=== PATIENT | female | born 1945 | race Caucasian/White ===

== ENCOUNTER 2021-08-02 00:09 | Day surgery (SDC) | payer MEDICARE, SELFPAY ==
[2021-07-18 15:26] VITALS: BMI 30.4
[2021-08-02 06:08] VITALS: BP 168/81; PULSE 94; RESP 20; TEMP 36.5; O2SAT 100; BMI 29.7
[2021-08-02] MEDS: AMPICILLIN 2 GM/NS 100 ML 2 GM/100 ML BAG IVPB (06:25)
[2021-08-02] MEDS: LACTATED RINGERS 1,000 ML 150 ML IV CONT (06:27)
--- NOTE | 2021-08-02 07:23 | P.PNAN_ITS ---
Anes - Initial Pre Proc Eval Procedure: Operation Date: 08/02/21 07:30 Proposed Procedures p Screening Colonoscopy - Gunnar Tomas MD Date/Time: 08/02/21 07:23 Surgeon: Gunnar Tomas MD Pre Op Diagnosis: hx of colon polyps Patient Data Age: 76 Gender: F Height: 1.6 m Weight: 76 kg Last Vital Signs Temp 97.7 F 08/02/21 06:08 Pulse 94 08/02/21 06:08 Resp 20 08/02/21 06:08 BP 168/81 H 08/02/21 06:08 Pulse Ox 100 08/02/21 06:08 Allergies Allergy/AdvReac Type Severity Reaction Status Date / Time NKA Allergy Unknown Uncoded 08/02/21 06:30 Home Medications Medication Instructions Recorded Confirmed Type valacyclovir 500 mg tablet 500 mg PO DAILY 03/24/19 04/29/21 History triamcinolone acetonide 0.5 % 1 applic TOPICAL DAILY PRN 11/16/19 04/29/21 History topical cream levocetirizine 5 mg tablet 5 mg PO DAILY PRN #30 tablet 09/18/20 07/18/21 Rx omeprazole 20 mg capsule,delayed 20 mg PO DAILY #90 cap 12/17/20 07/18/21 Rx release meloxicam 15 mg tablet 15 mg PO DAILY PRN #90 tablet 01/15/21 07/18/21 Rx montelukast 10 mg tablet 10 mg PO DAILY #90 tablet 01/15/21 07/18/21 Rx raloxifene 60 mg tablet 60 mg PO DAILY #90 tablet 01/15/21 07/18/21 Rx fluticasone propionate 50 1 spray NASAL BID #47.4 ml 04/19/21 07/18/21 Rx mcg/actuation nasal spray,suspension irbesartan 300 mg tablet 300 mg PO DAILY #90 tablet 07/23/21 Rx levothyroxine 75 mcg tablet 75 mcg PO DAILY #30 tablet 07/29/21 Rx Patient hx anesthesia problems: none Family hx anesthesia problems: none Results Review: All pre-operative results and documents have been reviewed as part of the pre-operative evaluation. [facility] Past Medical History Medical History (Updated 04/27/21 @ 09:19 by Ankit Martinez MD) Acute non-recurrent maxillary sinusitis Chronic pain of right knee Family History Family History (Updated 08/18/18 @ 12:51 by DOCTOR UNKNOWN) Mother Family history of cardiovascular disease, Onset Age: 91 Grandparent Family history of cardiovascular disease, Onset Age: 85 Father Family history of malignant neoplasm, Onset Age: 66 Social History Social History Smoking status: Never smoker Alcohol intake: never Substance use: never Substance use type: does not use Living arrangements: with family Gender identity (if verbalized by the patient): Female Spiritual care concerns: No Anes - Eval Final PreProcedure Day of Procedure 08/02/21 07:23 Patient weight: overweight Heart: regular rate and rhythm Lungs: clear to auscultation Airway: Mallampati scale class II Neurological: alert and oriented Last oral intake: >/= 8 hours ASA classification: II Emergent: no Anesthetic plan: proceed Anesthesia type and monitoring: general GIVS and standard monitoring Results Review: All pre-operative results and documents have been reviewed as part of the pre-operative evaluation. Informed Consent: The patient's anesthetic plan and its attendant risks and benefits were discussed with the patient/family/POA. Questions were solicited and answers provided to the satisfaction of the patient/family/POA.
--- NOTE | 2021-08-02 07:30 | WPDGICN ---
Assessment and Plan Assessment and plan (1) History of colon polyps: Code(s): Z86.010 - Personal history of colonic polyps Status: Acute Assessment and Plan: Patient has prior history of colon polyps by colonoscopy. Most recently 2015. Plan for surveillance colonoscopy at this time and consider this at intervals in the future. GI Consult Note Consult date/time: 08/02/21 07:30 HPI: Miya Miramontes is a 76 year old female Presents for screening colonoscopy. Patient's current weight appetite and bowel movements are normal. She denies abdominal pain. She has had no bleeding. Patient does have a prior history of adenomatous colon polyp removed from the colon in 2016. Patient's current weight appetite bowel movements are normal. Her family history is noncontributory. Apparently a cousin had colon cancer. Review of Systems Review of Systems: All systems reviewed & are unremarkable except as noted in HPI and below PMFSH Past Medical History Medical History (Updated 08/02/21 @ 07:31 by Gunnar Tomas MD) Acute non-recurrent maxillary sinusitis Chronic pain of right knee Family History Family History (Updated 08/18/18 @ 12:51 by DOCTOR UNKNOWN) Mother Family history of cardiovascular disease, Onset Age: 91 Grandparent Family history of cardiovascular disease, Onset Age: 85 Father Family history of malignant neoplasm, Onset Age: 66 Social History Social History Smoking status: Never smoker Alcohol intake: never Substance use: never Substance use type: does not use Living arrangements: with family Gender identity (if verbalized by the patient): Female Spiritual care concerns: No Meds Home Medications and Allergies Home Medications Medication Instructions Recorded Confirmed Type valacyclovir 500 mg tablet 500 mg PO DAILY 03/24/19 04/29/21 History triamcinolone acetonide 0.5 % 1 applic TOPICAL DAILY PRN 11/16/19 04/29/21 History topical cream levocetirizine 5 mg tablet 5 mg PO DAILY PRN #30 tablet 09/18/20 07/18/21 Rx omeprazole 20 mg capsule,delayed 20 mg PO DAILY #90 cap 12/17/20 07/18/21 Rx release meloxicam 15 mg tablet 15 mg PO DAILY PRN #90 tablet 01/15/21 07/18/21 Rx montelukast 10 mg tablet 10 mg PO DAILY #90 tablet 01/15/21 07/18/21 Rx raloxifene 60 mg tablet 60 mg PO DAILY #90 tablet 01/15/21 07/18/21 Rx fluticasone propionate 50 1 spray NASAL BID #47.4 ml 04/19/21 07/18/21 Rx mcg/actuation nasal spray,suspension irbesartan 300 mg tablet 300 mg PO DAILY #90 tablet 07/23/21 Rx levothyroxine 75 mcg tablet 75 mcg PO DAILY #30 tablet 07/29/21 Rx Allergies Allergy/AdvReac Type Severity Reaction Status Date / Time NKA Allergy Unknown Uncoded 08/02/21 06:30 Vital Signs Vital Signs - 24 hr 08/02/21 06:08 Temperature 97.7 F Pulse Rate 94 Respiratory Rate 20 Blood Pressure 168/81 H Pulse Oximetry 100 Exam Narrative: Physical exam reveals patient to be alert. Vital signs stable. HEENT exam is unremarkable. Patient is anicteric. Lungs are clear to auscultation and percussion. Heart is without murmur or extra sounds. Abdominal exam bowel sounds are present soft nontender with no organomegaly. Digital external rectal exam is normal.
[2021-08-02] MEDS: SIMETHICONE ORAL SUSPENSION 20 MG/0.3 ML 30 ML BOTTLE 0.6 ML IRRIGATION (07:51)
[2021-08-02 08:05] VITALS: BP 121/71; PULSE 94; RESP 19; O2SAT 99
[2021-08-02 08:15] VITALS: BP 133/85; PULSE 88; RESP 21; O2SAT 99
[2021-08-02 08:25] VITALS: BP 149/90; PULSE 104; RESP 19; O2SAT 100
== END 2021-08-02 08:27 | disposition home or self-care (01) ==
PROVIDERS: PCP Family Medicine; Visit Provider Internal Medicine Gastroenterology
PROC: 0DJD8ZZ Inspection of Lower Intestinal Tract, Via Natural or Artificial Opening Endoscopic (ICD-10-PCS; CPT 45378; principal; 2021-08-02 07:30)
DX: Z12.11 Encounter for screening for malignant neoplasm of colon (principal); Z86.010 Personal history of colon polyps
CPT/HCPCS: G0105; J0290; J2001; J2704; J7120

== ENCOUNTER → 2022-10-01 11:13 | Outpatient (CLI) | payer MEDICARE, SELFPAY ==
--- NOTE | ~2022-10-01 | MM_ITS ---
EXAMINATION: MM diagnostic shital BI w hiram HISTORY: Fibrocystic breasts and mastopathy TECHNIQUE: Craniocaudal, mediolateral, and mediolateral oblique 3-D tomosynthesis images of the breas ts were performed and synthetic 2-D images were generated. CAD analysis was submitted and interpreted . COMPARISON: 04/26/2021, 03/09/2019, 03/08/2019 BREAST PARENCHYMAL COMPOSITION: The breasts are heterogeneously dense, which may obscure small masses . FINDINGS: . Right breast: There is stable architectural distortion in the anterior third of the upper outer quadr ant of the right breast. Also seen is a stable mass in the middle third of the upper breast. No suspi cious calcification is identified. Left breast: There is stable architectural distortion in the upper inner quadrant of the left breast. No suspicious mass or calcification are identified. IMPRESSION: 1. Stable bilateral excisional biopsy changes and right breast mass without mammographic evidence of malignancy. 2. Recommend routine screening mammography in one year. BI-RADS Category 2: Benign finding(s). Reviewed, dictated and finalized at location A. IMPRESSION: 1. Stable bilateral excisional biopsy changes and right breast mass without shital mographic evidence of malignancy. 2. Recommend routine screening mammography in one year. BI-RADS Category 2: Benign finding(s).
== END ==
PROVIDERS: PCP Family Medicine; Visit Provider Family Medicine
DX: N60.11 Diffuse cystic mastopathy of right breast (principal); N60.12 Diffuse cystic mastopathy of left breast
CPT/HCPCS: 77062; 77066; G0279

== ENCOUNTER 2023-05-10 10:16 | Emergency (ER) | payer MEDICARE, SELFPAY ==
[2023-05-10 10:43] VITALS: BP 135/69; PULSE 111; RESP 16; TEMP 36.8; O2SAT 97
--- NOTE | 2023-05-10 10:49 | ED.NAVMDI ---
HPI - Nausea/Vomiting/Diarrhea General Chief complaint: Nausea/Vomiting/Diarrhea Stated complaint: diarrhea,throwing up Time Seen by Provider: 05/10/23 10:50 Source: patient Mode of arrival: ambulatory Limitations: no limitations History of Present Illness HPI Narrative: Miya is a 78-year-old female patient presenting to the clinic today with complaints of diarrhea and vomiting. She reports symptoms started at 3:00 a.m. this morning. Has had couple diarrhea episodes and 1 episode of vomiting. Does not complain of any abdominal pain, fever, chills, body aches, or urinary symptoms at this time. Related Data Allergies Allergy/AdvReac Type Severity Reaction Status Date / Time No Known Allergies Allergy Verified 05/10/23 10:54 [facility] Past Medical History Medical History Abnormal levels of other serum enzymes Acute non-recurrent maxillary sinusitis At moderate risk for fall (~2021) the patient fell 1 time when she was walking in an un even field in [place]. Cataracts, both eyes Chronic left-sided low back pain without sciatica Chronic pain of right knee Herpes zoster (~10/24/21) left upper back History of colon polyps Neoplasm of skin (~05/2021) nonhealing lesion right forearm Obesity (BMI 30.0-34.9) Family History Family History Mother Family history of cardiovascular disease, Onset Age: 91 Grandparent Family history of cardiovascular disease, Onset Age: 85 Father Family history of malignant neoplasm, Onset Age: 66 Social History Social History Smoking status: Never smoker Alcohol intake: never Substance use: never Substance use type: does not use Lack of Transportation: No Lack of Food: Never True Current Housing: I Have Housing Concerned About Future Housing: No Difficulty Paying Gas/Electric Bills: No Difficulty Paying for Meds: No Currently Unemployed: No Education: High School Diploma/GED Difficulty w/ Childcare or Family Care: No Living arrangements: with family Gender identity (if verbalized by the patient): Female Spiritual care concerns: No Comments At the time of my signature, I reviewed and agree with the nursing past medical, surgical, social, and family history. There is no relevant family history pertinent to the patient complaint. Exam Narrative: General: Well-developed, well nourished, in no apparent distress. Head: Normocephalic, atraumatic. Cardio: Regular rate and rhythm, s1 and s2 normal, no murmur appreciated. Resp: Clear to auscultation bilaterally, no rhonchi, rales, wheezing or rubs. Abdomen: Soft, pliable, bowel sounds present in all quadrants, non-tender to palpation, no organomegly, no CVAT tenderness. Course Course Emergency Course: Portions of this record may have been created with voice recognition software. Level of Care: Express Care Visit Vital Signs Vital signs: Vital Signs Temperature 36.8 C 05/10/23 10:43 Pulse Rate 111 H 05/10/23 10:43 Respiratory Rate 16 05/10/23 10:43 Blood Pressure 135/69 05/10/23 10:43 Pulse Oximetry 97 05/10/23 10:43 Oxygen Delivery Room Air 05/10/23 10:43 Temperature 36.8 C 05/10/23 10:43 Pulse Rate 111 H 05/10/23 10:43 Respiratory Rate 16 05/10/23 10:43 Blood Pressure 135/69 05/10/23 10:43 Pulse Oximetry 97 05/10/23 10:43 Oxygen Delivery Room Air 05/10/23 10:43 Vital signs reviewed MDM - Nausea/Vomiting/Diarrhea MDM Narrative Medical decision making narrative: At the time of visit patient is resting comfortably on the exam table. Patient appears to be nontoxic. I suspect patient has gastroenteritis. COVID and influenza testing was negative. She denies any abdominal pain, fever, chills, body aches at this time. Does not appear to be deh
== END 2023-05-10 11:18 | disposition home or self-care (01) ==
PROVIDERS: Emergency Provider Nurse Practitioner Family; PCP Family Medicine
DX: K52.9 Noninfective gastroenteritis and colitis, unspecified (principal)
CPT/HCPCS: 87426; 87804; 99213; C9803; G0463

== ENCOUNTER 2023-10-07 09:51 | Outpatient (CLI) | payer MEDICARE, SELFPAY ==
--- NOTE | ~2023-10-07 | MMUS_ITS ---
EXAMINATION: MM diagnostic shital BI w hiram, US breast RT limited HISTORY: History of prior benign excisional biopsy bilaterally. TECHNIQUE: Additional 3-D tomosynthesis images of the breasts were performed and synthetic 2-D images were generated. CAD analysis was submitted and interpreted. High resolution Limited right breast ult rasound was performed. COMPARISON: Comparison to multiple prior studies sequentially, with oldest reviewed study dated 03/11. BREAST PARENCHYMAL COMPOSITION: Dense: The breasts are heterogeneously dense, which may obscure small masses FINDINGS: MAMMOGRAPHIC FINDINGS: Stable architectural distortion in the upper outer quadrant of the right breast anteriorly. Stable ma ss in the upper inner quadrant of the right breast, middle third. The left breast is stable without e vidence for malignancy. ULTRASOUND: Limited right breast ultrasound: At 10:00, 6 cm from the nipple there is an irregular hypoechoic stru cture. There is nearby irregular shaped hypoechoic mass with spiculated margins and posterior shadowi ng at 11:00 in the area of scarring. These findings are all likely postoperative change. A 12-1:00, 6 cm from the nipple in the area of stable mass there is an oval hypoechoic mass with echogenic hilum measuring 3 cm, compatible with enlarged intramammary lymph node. IMPRESSION: 1. Stable likely benign findings of the right breast, likely postoperative in nature. 2. Recommend 6 month follow-up diagnostic right mammogram BI-RADS category 3, probably benign findings. Reviewed, dictated and finalized at location B. IMPRESSION: 1. Stable likely benign findings of the right breast, likely postoperative in n ature. 2. Recommend 6 month follow-up diagnostic right mammogram BI-RADS category 3, probably benign findings.
== END 2023-10-07 09:52 ==
LOC: MICIMG 09:53
PROVIDERS: PCP Family Medicine; Visit Provider Family Medicine
DX: N60.11 Diffuse cystic mastopathy of right breast (principal)
CPT/HCPCS: 76642; 77062; 77066; G0279

== ENCOUNTER → 2023-11-02 08:38 | Outpatient (REF) | payer MEDICARE, SELFPAY | LOC: ANHLAB 08:38 | PROVIDERS: PCP Family Medicine; Visit Provider Plastic Surgery | DX: L82.1 Other seborrheic keratosis (principal) | CPT/HCPCS: 88305 ==

== ENCOUNTER 2024-03-11 09:12 | Outpatient (CLI) | payer MEDICARE, SELFPAY ==
--- NOTE | ~2024-03-11 | MM_ITS ---
EXAMINATION: MM diagnostic shital BI w hiram HISTORY: Postoperative change, six-month follow-up TECHNIQUE: 3-D tomosynthesis images of the breasts were performed and synthetic 2-D images were gener ated. CAD analysis was submitted and interpreted. COMPARISON: 10/07/2023, 10/01/2022, 04/26/2021 BREAST PARENCHYMAL COMPOSITION:Dense: The breasts are heterogeneously dense, which may obscure small masses. FINDINGS: Parenchymal pattern of both breasts is unchanged. Stable architectural distortion and mass in the right breast dating back at least to 2020. No suspicious microcalcifications. No mass lesion o r distortion seen in the left breast. IMPRESSION: No mammographic evidence for malignancy. Stable benign findings, as above. BI-RADS Category 2: Benign finding(s). Reviewed, dictated and finalized at location M.
== END 2024-03-11 09:13 | disposition home or self-care (01) ==
LOC: MICIMG 09:13
PROVIDERS: PCP Family Medicine; Visit Provider Family Medicine
DX: N60.11 Diffuse cystic mastopathy of right breast (principal); N60.12 Diffuse cystic mastopathy of left breast
CPT/HCPCS: 77062; 77066; G0279

== ENCOUNTER 2025-03-13 14:31 | Outpatient (CLI) | payer MEDICARE, SELFPAY ==
--- NOTE | ~2025-03-13 | MM_ITS ---
EXAMINATION: MM screening [facility] BI w hiram INDICATION: Asymptomatic, referred for screening mammogram. History of Right partial mastectomy 2019. COMPARISON: 03/11/2024 through 03/09/2020 TECHNIQUE: Digital Breast Tomosynthesis CC, MLO views were obtained of Both breasts with computer-aided detection to assist in interpretation of the study. FINDINGS: The breasts are heterogeneously dense, which may obscure small masses. Posttreatment changes in Right breast are unchanged. No new focal dominant mass, architectural distortion, or suspicious microcalcifications are identified. There are no features to suggest malignancy. IMPRESSION: Stable benign mammogram. No evidence of malignancy in the breast. Recommend annual screening mammography in 12 months. BI-RADS 2, BENIGN Reviewed, dictated and finalized at location B. PUSHER
== END 2025-03-13 14:32 | disposition home or self-care (01) ==
LOC: MICIMG 14:32
PROVIDERS: PCP Family Medicine; Visit Provider Family Medicine
DX: Z12.31 Encounter for screening mammogram for malignant neoplasm of breast (principal)
CPT/HCPCS: 77063; 77067

== ENCOUNTER 2025-04-12 12:42 | Emergency (ER) | payer MEDICARE, SELFPAY ==
[2025-04-12 12:54] VITALS: BP 171/75; PULSE 71; RESP 16; TEMP 36.4; O2SAT 99
--- NOTE | 2025-04-12 13:07 | ED.WOUNDLAC ---
HPI - Wound/Laceration General Chief Complaint: Wound/Laceration Stated Complaint: fall Time Seen by Provider: 04/12/25 13:07 Source: patient Mode of arrival: ambulatory Limitations: no limitations History of Present Illness HPI narrative: 80 yo F presents with laceration to R eyebrow. Fell today at approx. 1130. States she was outside in garage wearing snowboots and got caught on a piece of carpet. Fell forward and sunglasses caused laceration. States that she did not hit her head. Denies LOC. denies neck and back pain. Was able to get up on her own. Bleeding controlled on arrival. All systems reviewed and negative except as noted. Related Data Allergies Allergy/AdvReac Type Severity Reaction Status Date / Time Narcotics AdvReac Mild Nausea and Uncoded 04/12/25 13:01 Vomiting PMFSH Past Medical History Medical History (Updated 04/12/25 @ 13:17 by Laila Rahman, MAUREEN) Breast cancer screening by mammogram Normal mammogram 03/13/2025. Chronic pain of right knee BMI 30.0-30.9,adult Neoplasm of uncertain behavior of skin Changing skin lesion Skin lesion of left lower limb Seborrheic keratoses on pathology after excision At low risk for fall (08/19/23) BMI 29.0-29.9,adult Overweight (BMI 25.0-29.9) Cataracts, both eyes treated surgically December, At moderate risk for fall (~2021) the patient fell 1 time when she was walking in an un even field in [place]. Obesity (BMI 30.0-34.9) Herpes zoster (~10/24/21) left upper back Neoplasm of skin (~05/2021) nonhealing lesion right forearm History of colon polyps Acute non-recurrent maxillary sinusitis Abnormal levels of other serum enzymes Chronic left-sided low back pain without sciatica Family History Family History Mother Family history of cardiovascular disease, Onset Age: 91 Grandparent Family history of cardiovascular disease, Onset Age: 85 Father Family history of malignant neoplasm, Onset Age: 66 Social History Social History Smoking status: Never smoker Alcohol intake: never Substance use: never Substance use type: does not use Current Housing: Decline to Answer Concerned About Future Housing: Decline to Answer Difficulty Paying Gas/Electric Bills: Decline to Answer Difficulty Paying for Meds: Decline to Answer Currently Unemployed: Decline to Answer Education: Decline to Answer Difficulty w/ Childcare or Family Care: Decline to Answer Living arrangements: with family Gender identity (if verbalized by the patient): Female Spiritual care concerns: No Comments At time of signature, agree with nursing past medical, surgical, social and family history. There is no relevant family history pertinent to the presenting complaint. Exam Narrative: GENERAL: This is a well-nourished, well-developed patient, in no apparent distress. HEAD: normocephalic, atraumatic. EYES: PERRL. Sclera clear/white. Vision is grossly intact. Extraocular motions intact EARS: External ears normal NOSE: External nose normal NECK: Neck supple, non-tender without lymphadenopathy, masses or thyromegaly. CARDIOVASCULAR: Regular rate and rhythm without murmurs, gallops, or rubs. RESPIRATORY: Clear to auscultation. Breath sounds equal bilaterally. No wheezes, rales, or rhonchi. SKIN: warm, Dry, with no suspicious lesions or rash, good texture and turgor. Laceration to right eyebrow approximately 3 cm NEURO: awake, alert, and oriented to person, place and time. There were no obvious focal neurologic abnormalities. EXTREMITIES: No joint tenderness, effusion, or edema noted. Course Course Level of Care: Express Care Visit Vital Signs Vital signs: Vital Signs Temperature 36.4 C L 04/12/25 12:54 Pulse Rate 71 04/12/25 12:54 Respiratory Rate 16 04/12/25 12:54 Blood Pressure 171/75 H 04/12/25 12:54 Pulse Oximetry 99 04/12/25 12:54 Oxygen Delivery Room Air 04/12/25 12:54 Temperature 36.4 C L 04/12/25 12:54 Pulse Rate 71 04/12/25 12:54 Respiratory Rate 16 04/12/25 12:54 Blood Pressure 171/75 H 04/12/25 12:54 Pulse Oximetry 99 04/12/25 12:54 Oxygen Delivery Room Air 04/12/25 12:54 Reviewed, blood pressure elevated today. Recommend follow-up with PCP in 1 week. Procedures Laceration Laceration 1: Date: 04/12/25 Time: 13:15 Site: face Side (If applicable): right (Eyebrow) Size (cm): 3 Description: linear ====== Skin Level ====== Skin layer closed with: dermabond ====== Subcutaneous Layer ====== ====== Muscle Layer ====== ====== Tendon Layer ====== MDM MDM Narrative Medical decision making narrative: Facial laceration repaired with Dermabond. Wound edges approximate. Patient tolerated well. Ambulatory with steady gait at time of discharge. No neuro deficits. Differential Diagnosis Differential Diagnosis: Laceration, skin avulsion, abrasion, skin tear Discharge Plan Discharge Clinical Impression: Elevated blood pressure reading Laceration of eyebrow, right Qualifiers: Encounter type: initial encounter Qualified Code(s): S01.111A - Laceration without foreign body of right eyelid and periocular area, initial encounter Patient Disposition: Home Condition: Stable Instructions: Skin Adhesive Care (ED), Facial Laceration (ED) Additional Instructions: Keep skin adhesive in place for the next 5-7 days. Avoid getting it wet. If it does become wet, pat dry with towel. Do not pull or pick at skin adhesive, let it fall off or dissolve on its own. Your blood pressure was elevated today, follow-up with your primary care physician in 1 week to recheck. Patient Language: Portuguese Prescriptions: No Action ondansetron 4 mg tablet,disintegrating 4 mg PO Q6H PRN (Reason: nausea and vomiting) 3 Days Qty: 12 0RF meloxicam 15 mg tablet 15 mg PO DAILY PRN (Reason: pain) Qty: 90 3RF levothyroxine 75 mcg tablet 75 mcg PO DAILY Qty: 90 3RF triamcinolone acetonide 0.5 % cream 1 applic TOPICAL BID PRN (Reason: rash) Qty: 15 0RF Rx Instructions: apply to rash on left upper back twice daily until clear fluticasone propionate [Flonase Allergy Relief] 50 mcg/actuation spray,suspension 1 spray NASAL BID Qty: 47.4 3RF levocetirizine 5 mg tablet 5 mg PO DAILY PRN (Reason: allergy symptoms) Qty: 90 3RF omeprazole 20 mg capsule,delayed release(DR/EC) 20 mg PO DAILY Qty: 90 3RF montelukast 10 mg tablet 10 mg PO DAILY Qty: 90 3RF raloxifene 60 mg tablet 60 mg PO DAILY Qty: 90 3RF irbesartan 300 mg tablet 300 mg PO DAILY Qty: 90 3RF Follow-up/Referrals: Ankit Martinez MD [Primary Care Provider, Family Practice] - 1 Week Time of Disposition: 13:17
== END 2025-04-12 13:30 | disposition home or self-care (01) ==
PROVIDERS: Emergency Provider Nurse Practitioner Family; PCP Family Medicine
DX: R03.0 Elevated blood-pressure reading, without diagnosis of hypertension (principal); S01.111A Laceration without foreign body of right eyelid and periocular area, initial encounter; W18.09XA Striking against other object with subsequent fall, initial encounter; E55.9 Vitamin D deficiency, unspecified; Z85.828 Personal history of other malignant neoplasm of skin; E66.9 Obesity, unspecified; Z68.30 Body mass index [BMI] 30.0-30.9, adult; D48.5 Neoplasm of uncertain behavior of skin
CPT/HCPCS: 12013; 99212; G0463